=== PATIENT | male | born 1975 | race Caucasian/White ===

== ENCOUNTER 2020-09-05 14:59 | Outpatient (CLI) | payer BC ==
--- NOTE | 2020-09-05 16:31 | XRAY Report ---
PROCEDURE: Shoulder 3 View LT INDICATIONS: LEFT SHOULDER PAIN TECHNIQUE: 3 views of the shoulder were acquired. COMPARISON: None. FINDINGS: No fracture. Mild to moderate AC joint degeneration. There is also possible cortical loss at the AC j oint raising possibility of inflammatory or infectious arthropathy. Soft tissues: No suspicious soft tissue calcifications. IMPRESSION: AC joint degeneration, and suggestion of cortical bone loss raising possibility of infectious or infl ammatory arthropathies. Please correlate clinically and with laboratory data. Reviewed by: Gideon Mcelroy MD on 09/05/2020 4:29 PM PST Approved by: Gideon Mcelroy MD on 09/05/2020 4:29 PM PST Station ID: [id number]
--- NOTE | 2020-09-07 04:51 | XRAY Report ---
PROCEDURE: Cervical Spine 2 View INDICATIONS: NECK PAIN TECHNIQUE: 3 view(s) of the cervical spine were acquired. COMPARISON: None. FINDINGS: No fracture. Straightening of the normal lordotic curvature. Scattered multilevel endplate spurring and diffuse facet arthropathy. No definite disc space narrowing. Scattered carotid atherosclerotic calcified plaque. IMPRESSION: Diffuse facet arthropathy and minimal cervical spondylosis. Reviewed by: Gideon Mcelroy MD on 09/05/2020 4:31 PM PST Approved by: Gideon Mcelroy MD on 09/05/2020 4:31 PM PST Station ID: [id number]
== END 2020-09-05 15:00 | disposition home or self-care (01) ==
LOC: DI.N 14:59
PROVIDERS: ATTEND Physician Assistant
DX: M25.512 Pain in left shoulder (principal); M19.012 Primary osteoarthritis, left shoulder; M47.812 Spondylosis without myelopathy or radiculopathy, cervical region

== ENCOUNTER 2020-09-05 16:18 | Outpatient (CLI) | payer BC ==
--- NOTE | 2020-09-06 08:35 | XRAY Report ---
PROCEDURE: Lumbar Spine 2 View INDICATIONS: Low back pain TECHNIQUE: 2 views of the lumbar spine were acquired. COMPARISON: None FINDINGS: Bones: There are 5 nonrib-bearing lumbar-type vertebral bodies of normal height and alignment. Disc height loss from L3-L4 through L5-S1 with associated degenerative endplate changes and facet hypertro phy. There appears to be mild to moderate neural foraminal narrowing at both L4-L5 and L5-S1. No susp icious lytic or blastic osseous lesion. Mild degenerative changes in the inferior sacroiliac joints. Soft tissues: Overlying bowel gas pattern is normal. No suspicious soft tissue calcifications. IMPRESSION: Mild-moderate lower lumbar spine degenerative changes. Reviewed by: Michael Holloway MD on 09/06/2020 8:33 AM PST Approved by: Michael Holloway MD on 09/06/2020 8:33 AM PST Station ID: [id number]
== END 2020-09-05 16:19 | disposition home or self-care (01) ==
LOC: DI.N 16:18
PROVIDERS: ATTEND Physician Assistant
DX: M54.5 Low back pain (principal); M25.512 Pain in left shoulder; M47.816 Spondylosis without myelopathy or radiculopathy, lumbar region; M19.012 Primary osteoarthritis, left shoulder; M47.812 Spondylosis without myelopathy or radiculopathy, cervical region